=== PATIENT | male | born 1940 | race Caucasian/White ===

== ENCOUNTER 2017-07-26 14:38 | Emergency (ER) | payer MEDICARE ==
[2017-07-26 15:13] VITALS: BP 126/67
--- NOTE | 2017-07-26 15:31 | UC ---
Respiratory Complaint HPI - HPI Summary HPI Summary: Pt c/o cough, sob, and intermittent chest pain X 4 weeks. Pt has hx of afib and copd. Does not know baseline o2 saturation level. thinks it may be 97%. - History of Current Complaint Chief Complaint: UCRespiratory Stated Complaint: COUGH UPPER RESPIRATORY Time Seen by Provider: 07/26/17 14:44 Hx Obtained From: Patient Onset/Duration: Gradual Onset, Lasting Weeks, Still Present Timing: Constant Severity Initially: Mild Severity Currently: Moderate Character: Cough: Productive, Sputum Description: - yellow Aggravating Factors: Exertion, Deep Breaths, Recumbent Position Alleviating Factors: Nothing Associated Signs And Symptoms: Positive: Wheezing, Nasal Congestion - Risk Factors Pulmonary Embolism Risk Factors: Negative Cardiac Risk Factors: Hypertension Pseudomonas Risk Factors: Chronic Lung Disease Tuberculosis Risk Factors: Negative - Allergies/Home Medications Allergies/Adverse Reactions: Allergies Allergy/AdvReac Type Severity Reaction Status Date / Time Bee Venom Allergy Anaphylatic Verified 07/26/17 15:03 Shock Grapefruit Extract Allergy Shortness Verified 07/26/17 15:03 of Breath Home Medications: Home Medications Albuterol 2.5MG/3ML (0.083%)* [Ventolin 2.5 MG/3 ML NEB.LILY*] 1 inh TID PRN [History Confirmed 07/26/17] Albuterol HFA INHALER* [Ventolin HFA Inhaler*] 2 puff Q4HR PRN 07/26/17 [ History Confirmed 07/26/17] Amiodarone TAB* [Cordarone Tab*] 100 mg DAILY 07/26/17 [History Confirmed ] Fluticasone/Vilanterol MDI(NF) [Breo Ellipta MDI 100/25(NF)] 2 puff DAILY [History Confirmed 07/26/17] Tiotropium CAP.INH* [Spiriva CAP.INH*] 1 cap DAILY 07/26/17 [History Confirmed 07/26/17] PMH/Surg Hx/FS Hx/Imm Hx Previously Healthy: No Cardiovascular History: Cardiac Disease Respiratory History: COPD - Surgical History Surgical History: Yes Surgery Procedure, Year, and Place: Back surgery x2 - Family History Known Family History: Positive: Cardiac Disease - Social History Occupation: Retired Lives: With Family Alcohol Use: None Substance Use Type: None Smoking Status (MU): Former Smoker Have You Smoked in the Last Year: No - Immunization History Most Recent Influenza Vaccination: 2017 Review of Systems Constitutional: Negative Skin: Negative Eyes: Negative ENT: Other - nasal congestion Respiratory: Shortness Of Breath, Cough Cardiovascular: Chest Pain - intermittent Gastrointestinal: Negative Genitourinary: Negative Motor: Negative Neurovascular: Negative Musculoskeletal: Negative Neurological: Negative Psychological: Negative Is Patient Immunocompromised?: No All Other Systems Reviewed And Are Negative: Yes Physical Exam Triage Information Reviewed: Yes Appearance: Ill-Appearing Vital Signs: Initial Vital Signs Temp 97.1 F 07/26/17 15:06 Pulse 75 07/26/17 15:06 Resp 22 07/26/17 15:06 BP 126/67 07/26/17 15:06 Pulse Ox 95 07/26/17 15:06 Vital Signs Reviewed: Yes Eye Exam: Normal ENT Exam: Other ENT: Positive: Nasal congestion Dental Exam: Normal Neck exam: Normal Respiratory: Positive: Decreased breath sounds - bases, bilateral Cardiovascular: Positive: Other: - IRR, EKG confirmed Afib. I called his Cardioliogist, Dr. Phan and spoke with CHRISTOS Pedro, and she confirmed that pt has "transient Afib" Musculoskeletal Exam: Normal Neurological Exam: Normal Psychological Exam: Normal Skin Exam: Normal UC Diagnostic Evaluation - Laboratory O2 Sat by Pulse Oximetry: 95 Respiratory Course/Dx - Differential Dx/Diagnosis Differential Diagnosis/HQI/PQRI: Bronchitis, Pulmonary Embolism, Other - pneumonia Provider Diagnoses: Afib. bronchitis Discharge - Discharge Plan Condition: Stable Disposition: HOME Prescriptions: Benzonatate CAP* [Tessalon 100 MG CAP*] 100 mg PO Q8H PRN #30 cap PRN Reason: Cough predniSONE TAB* [Deltasone TAB*] 40 mg PO DAILY #6 tab Sulfamethox/Trimethoprim DS* [Bactrim DS 800/160 TAB*] 1 tab PO Q12H #20 tab Patient Education Materials: A-fib (Atrial Fibrillation) (ED), Acute Bronchitis (ED) Referrals: Emilie HARO,Antwan White [Medical Doctor] - If Needed Tomás Ruiz MD [Primary Care Provider] - If Needed
[2017-07-26] MEDS ORDERED: Levalbuterol 1.25MG/0.5ML NEB INH ONE (15:42)
[2017-07-26] MEDS ORDERED: predniSONE TAB* 50 MG PO ONE (15:44)
[2017-07-26] MEDS ORDERED: predniSONE TAB* 20 MG PO ONE (15:47)
[2017-07-26] MEDS ORDERED: Levalbuterol 0.63MG/3ML NEB* UNIT OF USE INH ONE (15:53)
--- NOTE | 2017-07-26 16:04 | RAD ---
INDICATION: Cough COMPARISON: December 06, 2015 TECHNIQUE: PA and lateral dual-energy views were obtained. FINDINGS: Bones/Soft Tissues: There are no acute bony findings. Cardiomediastinal: The cardiomediastinal silhouette is normal. Lungs: There are no infiltrates. There is hyperinflation Pleura: There are no pleural effusions. Other: None IMPRESSION: HYPERINFLATION. NO ACTIVE DISEASE
== END 2017-07-26 16:26 | disposition home or self-care (01) ==
LOC: UCCORT 14:38
DX: I48.91 Unspecified atrial fibrillation (principal); J44.9 Chronic obstructive pulmonary disease, unspecified; J40 Bronchitis, not specified as acute or chronic; I10 Essential (primary) hypertension; Z91.030 Bee allergy status; Z87.891 Personal history of nicotine dependence
CPT/HCPCS: 71020; 93005; 99212; A9270-GY; G0463; J7512; J7614

== ENCOUNTER 2017-10-30 09:19 | Emergency (ER) | payer MEDICARE ==
--- OUTSIDE RECORDS SUMMARY | 2017-10-30 09:31 | XMS REPORT ---
:1940 External Reference #:[id number] [facility] Address [address], [address] [place] [address] Phone [phone] Care Team Providers Name Role Phone Tomás Ruiz MD Care Team Information Vibrating Screen Operator Unavailable Tomás Ruiz MD Primary Care Physician Unavailable Payers Type Date Identification Numbers Payment Provider Subscriber Commercial Policy Number: [id number] [employer] Tomás Smalls PayID: [id number] [address] [address] [place] [address] Problems Date Description Provider Status Onset: 12/18/2010 Pure hypercholesterolemia Antwan Phan M.D., Active [facility] Onset: 12/18/2010 Benign essential hypertension Antwan Phan M.D., Active [facility] Onset: 12/18/2010 Atrial fibrillation Antwan Phan M.D., Active [facility] Onset: 12/13/2014 Dyspnea Antwan Phan M.D., Active [facility]ACC Onset: 12/13/2014 Cough Antwan Phan M.D., Active [facility]ACC Onset: 12/13/2014 Hyperlipidemia Antwan Phan M.D., Active [facility] Onset: 06/20/2015 Essential hypertension Aisha Munoz, CAROLINE, Active CABLE REPAIRER Onset: 10/03/2015 Chronic obstructive lung disease Antwan Phan M.D., Active [facility]ACC Onset: 10/03/2015 Mitral valve disorder Antwan Phan M.D., Active [facility] Onset: 09/09/2017 Persistent atrial fibrillation Antwan Phan M.D., Active [facility]AC Onset: 08/06/2017 Bleeding esophageal varices Antwan Phan M.D., Active [facility] Onset: 04/02/2016 Paroxysmal atrial fibrillation Aisha Munoz, MSN, Active CABLE REPAIRER Family History Date Family Member(s) Problem(s) Comments : (age 81 Years) Father due to [place] Social History Type Date Description Comments Lives With Significant Other Diet Patient follows no dietary restrictions Occupation Retired ADL's/IADL's Independent with all ADL's ADL's/IADL's Independent with all IADL's Cigarette Use Quit 20 yrs ago ETOH Use Denies alcohol use Smoking Patient is a former smoker Daily Caffeine Current Caffeine User Allergies, Adverse Reactions, Alerts Date Description Reaction Status Severity Comments 12/18/2010 Grapefruit active 05/16/2015 Bumble Bee active 12/18/2010 Bee Sting active 05/16/2015 Albuterol active Medications Medication Date Status Form Strength Qnty SIG Indications Ordering Provider Suresh WALDROP 09/10/ Active Caps ER 180mg 90cap 1 po qd I48.1 Antwan White 2017 24HR s Irlanda Phan, [facility] Digoxin 08/06/ Active Tablets 125mcg 90tab 1 by mouth Antwan White 2017 s every day Irlanda Phan, [facility] Spiriva 11/01/ Active Aerosol 2.5mcg/Ac 4unit Inhale 2 J43.2 Frank Respimat 2016 t s Puffs By MD Junior Mouth Once Daily Vitamin D / Active Capsules 1000Unit 60cap 1 po qd Unknown 0000 s Epipen 2-Malcolm / Active Device 0.3mg/0.3 as needed Unknown 0000 ML Ventolin HFA / Active Aerosol 108(90Bas 8gm take 2 puff Frank 0000 e) every 4 MD Junior mcg/Act hours as needed for shortness of breath. Albuterol / Active Nebulizer 1.25mg/3M 225ml use every 4 Frank Sulfate 0000 L hours as MD Junior needed for shortness of breath. Iron / Active Tablets 325(65Fe) 1 by mouth Unknown 0000 mg every other day Breo Ellipta / Active Aerosol 100-25mcg 60uni Inhale One Frank /Inh ts puff By MD Junior Mouth Every Day Pumpkin Seed / Active Capsules 1 po qd Unknown Oil 0000 Augmentin / Active Tablets 875-125mg 1 by mouth Unknown 0000 twice a day Cardizem LA 09/09/ Hx Tablets ER 180mg 90tab 1 by mouth I48.1 Antwan M. 2017 - 24HR s every night Emilie, 09/10/ Irlanda, [facility] 2017 Furosemide 04/02/ Hx Tablets 40mg 1/2 by mouth I10 Aisha 2015 as needed Tiffanie Munoz, MSN, CABLE REPAIRER Amiodarone HCL 10/22/ Hx Tablets 200mg 90tab take one Aisha 2014 s tablet by Tiffanie mouth every Munoz, day MSN, CABLE REPAIRER Diltiazem HCL 05/24/ Hx Caps ER 120mg 90cap Take One Antwan M. ER Coated 2013 - 24HR s Capsule By Emilie, Beads 12/13/ Mouth Once M.D., [facility] 2014 Daily Furosemide 08/05/ Hx Tablets 40mg 90tab take 1/2 I10 Aisha 2012 - s tablet qod Tiffanie 04/02/ Tammy, 2015 MSN, CABLE REPAIRER Diltiazem CD 03/19/ Hx Caps ER 120mg 90cap Take One Antwan M. 2011 - 24HR s Capsule By Emilie, 12/13/ Mouth Every M.D., [facility] 2014 Day Pradaxa 02/12/ Hx Capsules 150mg 60cap take one 427.31 Aisha 2010 s capsule by Tiffanie mouth twice Munoz, daily MSN, CABLE REPAIRER Allopurinol / Hx Tablets 300mg 1 tab m,w,f Unknown 0000 Klor-Con 10 / Hx Tablets ER 10Meq 90tab 1 po qd Unknown 0000 s Warfarin / Hx Tablets 5mg 45tab as directed 427.31 Unknown Sodium 0000 - s 2010 Cardizem CD / Hx Caps ER 120mg 90cap 1 po qd Antwan M. 0000 24HR s Irlanda Phan, [facility] Aspir-81 / Hx Tablets DR 81mg 60tab 2x weekly Unknown 0000 s Lisinopril / Hx Tablets 5mg 90tab 1/2 po qd Antwan M. 0000 - s Emilie, 05/05/ Irlanda, [facility] 2011 Lasix / Hx Tablets 40mg 90tab 1 po qd Antwan M. 0000 s Irlanda Phan, [facility] Pacerone / Hx Tablets 200mg 90tab Take One Aisha 0000 - s Tablet By Tiffanie 10/22/ Mouth Every Munoz, 2014 MSN, CABLE REPAIRER Symbicort / Hx Aerosol 160-4.5mc 6gm 2 puff bid Unknown 0000 g/Act Simvastatin / Hx Tablets 20mg 30tab Take 1/2 Antwan M. 0000 - s Tablet By Emilie, 03/14/ Mouth Every M.D., [facility] 2014 Albuterol Hx Nebulizer (5mg/ML) as needed Unknown Sulfate 0000 0.5% Proair HFA Hx Aerosol 108(90Bas 1-2 Unknown 0000 e) inhalations mcg/Act every 4 hours as needed Pantoprazole / Hx Tablets DR 40mg 1 po qd Unknown Sodium 0000 Lasix / Hx Tablets 20mg 1 by mouth Unknown 0000 every day Allopurinol / Hx Tablets 300mg 1 by mouth Unknown 0000 every day Vitamin C / Hx Tablets 1000mg 1 by mouth Unknown 0000 every day Amiodarone HCL / Hx Tablets 100mg 90tab Take One I48.1 Antwan M. 0000 - s Tablet By Emilie, 09/09/ Mouth Every M.D., [facility] 2017 Vital Signs Date Vital Result Comment 10/10/2017 BP Systolic Sitting Left Arm 132 mmHg BP Diastolic Sitting Left Arm 75 mmHg Heart Rate 78 /min Respiratory Rate 24 /min Height 66 inches 5'6" Weight 215.00 lb BMI (Body Mass Index) 34.7 kg/m2 BSA (Body Surface Area) 2.06 m2 [place] body weight in kilograms 64 O2 % BldC Oximetry 89 % 08/08/2017 BP Systolic Sitting Left Arm 118 mmHg BP Diastolic Sitting Left Arm 78 mmHg Heart Rate 78 /min Respiratory Rate 20 /min Height 66 inches 5'6" Weight 217.00 lb BMI (Body Mass Index) 35.0 kg/m2 BSA (Body Surface Area) 2.07 m2 [place] body weight in kilograms 64 O2 % BldC Oximetry 92 % room air 08/06/2017 BP Systolic Sitting Left Arm 122 mmHg BP Diastolic Sitting Left Arm 74 mmHg Heart Rate 92 /min Respiratory Rate 16 /min Weight 218.00 lb 06/24/2017 BP Systolic Sitting Left Arm 132 mmHg BP Diastolic Sitting Left Arm 68 mmHg Heart Rate 73 /min Respiratory Rate 18 /min Height 66 inches 5'6" Weight 216.00 lb BMI (Body Mass Index) 34.9 kg/m2 BSA (Body Surface Area) 2.07 m2 [place] body weight in kilograms 64 O2 % BldC Oximetry 93 % 12/17/2016 BP Systolic Sitting Right Arm 140 mmHg BP Diastolic Sitting Right Arm 66 mmHg Heart Rate 84 /min Respiratory Rate 16 /min Height 66 inches 5'6" Weight 219.00 lb BMI (Body Mass Index) 35.3 kg/m2 BSA (Body Surface Area) 2.08 m2 [place] body weight in kilograms 64 O2 % BldC Oximetry 92 % Room air 10/29/2016 BP Systolic Sitting Left Arm 114 mmHg BP Diastolic Sitting Left Arm 68 mmHg Heart Rate 72 /min Respiratory Rate 18 /min Height 66 inches 5'6" Weight 216.00 lb BMI (Body Mass Index) 34.9 kg/m2 BSA (Body Surface Area) 2.07 m2 06/19/2016 BP Systolic Sitting Left Arm 118 mmHg BP Diastolic Sitting Left Arm 67 mmHg Heart Rate 65 /min Respiratory Rate 16 /min Height 66 inches 5'6" Weight 208.00 lb BMI (Body Mass Index) 33.6 kg/m2 BSA (Body Surface Area) 2.03 m2 O2 % BldC Oximetry 91 % Room Air 04/02/2016 BP Systolic Sitting Left Arm 98 mmHg BP Diastolic Sitting Left Arm 79 mmHg Heart Rate 85 /min Respiratory Rate 16 /min Height 66 inches 5'6" Weight 210.00 lb BMI (Body Mass Index) 33.9 kg/m2 BSA (Body Surface Area) 2.04 m2 11/02/2015 BP Systolic Sitting Left Arm 132 mmHg BP Diastolic Sitting Left Arm 76 mmHg Heart Rate 84 /min Height 66 inches 5'6" Weight 210.00 lb BMI (Body Mass Index) 33.9 kg/m2 BSA (Body Surface Area) 2.04 m2 O2 % BldC Oximetry 93 % 10/03/2015 BP Systolic Sitting Left Arm 120 mmHg BP Diastolic Sitting Left Arm 66 mmHg Heart Rate 65 /min Respiratory Rate 16 /min Height 66 inches 5'6" Weight 208.00 lb BMI (Body Mass Index) 33.6 kg/m2 BSA (Body Surface Area) 2.03 m2 07/04/2015 BP Systolic Sitting Left Arm 98 mmHg BP Diastolic Sitting Left Arm 64 mmHg Heart Rate 61 /min Respiratory Rate 24 /min Height 66 inches 5'6" Weight 213.00 lb BMI (Body Mass Index) 34.4 kg/m2 BSA (Body Surface Area) 2.05 m2 O2 % BldC Oximetry 95 % 06/20/2015 BP Systolic Sitting Right Arm 102 mmHg BP Diastolic Sitting Right Arm 60 mmHg Heart Rate 60 /min reg Respiratory Rate 16 /min Height 66.5 inches 5'6.50" Weight 210.00 lb BMI (Body Mass Index) 33.4 kg/m2 BSA (Body Surface Area) 2.05 m2 03/14/2015 BP Systolic Sitting Left Arm 128 mmHg BP Diastolic Sitting Left Arm 70 mmHg Heart Rate 58 /min Respiratory Rate 16 /min Height 66.5 inches 5'6.50" Weight 209.00 lb BMI (Body Mass Index) 33.2 kg/m2 BSA (Body Surface Area) 2.05 m2 12/13/2014 BP Systolic Sitting Right Arm 110 mmHg BP Diastolic Sitting Right Arm 68 mmHg Heart Rate 60 /min Respiratory Rate 20 /min Height 66.5 inches 5'6.50" Weight 210.00 lb BMI (Body Mass Index) 33.4 kg/m2 BSA (Body Surface Area) 2.05 m2 12/08/2013 BP Systolic Sitting Right Arm 150 mmHg BP Diastolic Sitting Right Arm 74 mmHg Heart Rate 60 /min Respiratory Rate 16 /min Height 66.5 inches 5'6.50" Weight 220.00 lb BMI (Body Mass Index) 35.0 kg/m2 BSA (Body Surface Area) 2.09 m2 11/12/2012 BP Systolic Sitting Right Arm 130 mmHg BP Diastolic Sitting Right Arm 78 mmHg Heart Rate 56 /min Respiratory Rate 16 /min Height 66.5 inches 5'6.50" Weight 221.00 lb BMI (Body Mass Index) 35.1 kg/m2 11/12/2011 BP Systolic Sitting Right Arm 120 mmHg BP Diastolic Sitting Right Arm 64 mmHg Heart Rate 60 /min Respiratory Rate 20 /min Height 66.5 inches 5'6.50" Weight 225.00 lb BMI (Body Mass Index) 35.8 kg/m2 05/15/2011 BP Systolic Sitting Left Arm 120 mmHg BP Diastolic Sitting Left Arm 70 mmHg Heart Rate 62 /min Regular Respiratory Rate 16 /min Height 66.5 inches 5'6.50" Weight 221.00 lb BMI (Body Mass Index) 35.1 kg/m2 02/12/2011 BP Systolic Sitting Right Arm 122 mmHg BP Diastolic Sitting Right Arm 68 mmHg Heart Rate 66 /min Respiratory Rate 18 /min Height 66.5 inches 5'6.50" Weight 225.00 lb BMI (Body Mass Index) 35.8 kg/m2 12/18/2010 BP Systolic Sitting Left Arm 100 mmHg BP Diastolic Sitting Left Arm 62 mmHg Heart Rate 92 /min Regular Respiratory Rate 16 /min Height 66.5 inches 5'6.50" Weight 224.00 lb BMI (Body Mass Index) 35.6 kg/m2 Results Test Date Test Result H/L Range Note CBC 10/13/2017 White Blood Count 22.6 K/uL High 3.4-10.5 1 Red Blood Count 4.57 M/uL 4.20-5.80 1 Hemoglobin 14.6 gm/dL 12.8-17.0 1 Hematocrit 45.0 % 38.0-48.0 1 Mean Cell Volume 98.5 fl High 80.0-96.0 1 Mean Corpuscular HGB 31.9 pg 27.0-33.0 1 Mean Corpuscular HGB Conc 32.4 g/dL 31.7-36.0 1 Platelet Count 221 K/uL 155-360 1 Red Cell Distri Width %CV 13.4 % 11.6-15.8 1 Mean Platelet Volume 9.0 fL 6.6-10.6 1 Basic Metabolic Panel 10/13/2017 Glucose 172 mg/dL High 74-106 1 BUN 44 mg/dL High 7-18 1 Creatinine 1.8 mg/dL High 0.6-1.3 1 Glom Filtration Rate, Estimate 39 mL/min >60 1 If 47 mL/min >60 1, 2 BUN/Creat 24.4 ratio 1 Sodium 136 mmol/L 136-145 1 Potassium 4.6 mmol/L 3.5-5.1 1 Chloride 98 mmol/L 98-107 1 Carbon Dioxide 32 mmol/L 21-32 1 Anion Gap 6 mEq/L Low 8-16 1 Calcium 8.7 mg/dL 8.5-10.1 1 CBC 10/12/2017 White Blood Count 20.7 K/uL High 3.4-10.5 1 Red Blood Count 4.34 M/uL 4.20-5.80 1 Hemoglobin 14.0 gm/dL 12.8-17.0 1 Hematocrit 43.4 % 38.0-48.0 1 Mean Cell Volume 100.0 fl High 80.0-96.0 1 Mean Corpuscular HGB 32.3 pg 27.0-33.0 1 Mean Corpuscular HGB Conc 32.3 g/dL 31.7-36.0 1 Platelet Count 188 K/uL 155-360 1 Red Cell Distri Width %CV 13.3 % 11.6-15.8 1 Mean Platelet Volume 9.3 fL 6.6-10.6 1 Basic Metabolic Panel 10/12/2017 Glucose 205 mg/dL High 74-106 1 BUN 42 mg/dL High 7-18 1 Creatinine 1.9 mg/dL High 0.6-1.3 1 Glom Filtration Rate, Estimate 37 mL/min >60 1 If 44 mL/min >60 1, 3 BUN/Creat 22.1 ratio 1 Sodium 134 mmol/L Low 136-145 1 Potassium 4.6 mmol/L 3.5-5.1 1 Chloride 98 mmol/L 98-107 1 Carbon Dioxide 31 mmol/L 21-32 1 Anion Gap 5 mEq/L Low 8-16 1 Calcium 8.7 mg/dL 8.5-10.1 1 Order 06/21/2016 PFT With Bronchodilator <pending> Laboratory test 05/17/2015 Hematocrit 28.0 Low 38.0-48.0 finding Hemoglobin 8.3 Low 12.8-17.0 Mean Corpuscular Hemoglobin 28.2 27.0-33.0 Mean Corpuscular Hemoglobin Concent 29.6 Low 31.7-36.0 Mean Corpuscular Volume 95.2 80.0-96.0 Mean Platelet Volume 9.3 6.6-10.6 Platelet Count 204 150-400 RDW Coefficient of Variation 15.2 11.6-15.8 Red Blood Count 2.94 Low 4.20-5.80 White Blood Count 8.1 3.4-10.5 Laboratory test 05/16/2015 Stool Occult Blood Negative Negative finding Laboratory test 05/16/2015 Miscellaneous Test Test(s) added finding Comment Laboratory test 05/16/2015 Urine Bilirubin Negative Negative finding Urine Blood Trace Negative Urine Clarity Clear Clear Urine Color Yellow Yellow Urine Glucose (Ua) Negative Negative Urine Ketones Negative Negative Urine Leukocyte Esterase Negative Negative Urine Nitrite Negative Negative Urine Protein Negative Negative Urine Specific Barnett 1.025 1.010-1.030 Urine Urobilinogen 0.2 0.2-1.0 Urine pH 5.5 Low 6.5-7.5 Laboratory test finding 05/16/2015 Alanine Aminotransferase (Alt/SGPT) 27 12-78 Albumin 3.4 3.4-5.0 Albumin/Globulin Ratio 1.0 Alkaline Phosphatase 61 45-117 Anion Gap 3 Low 8-16 Aspartate Amino Transf (Ast/Sgot) 21 15-37 BUN/Creatinine Ratio 11.7 Basophils # (Auto) 0.03 Low 0.1-0.2 Basophils (%) (Auto) 0.3 0.1-1.0 Blood Urea Nitrogen 20 High 7-18 Calcium Level 8.5 8.5-10.1 Carbon Dioxide Level 29 21-32 Chloride Level 108 High 98-107 Creatinine 1.7 High 0.6-1.3 Eosinophils # (Auto) 0.23 0.0-0.5 Eosinophils (%) (Auto) 2.5 0.0-5.0 Estimated GFR () 51 >60 Estimated GFR (Non- 42 >60 Globulin 3.4 1.9-4.3 Glucose Screen 116 High 74-106 Iron Level 14 Low 65-175 Lymphocytes # (Auto) 1.01 Low 1.8-7.0 Lymphocytes (%) (Auto) 11.2 Low 17.0-56.0 Monocytes # (Auto) 1.13 High 0.0-0.8 Monocytes (%) (Auto) 12.5 High 0.0-10.0 Neutrophils # (Auto) 6.62 1.8-7.0 Neutrophils (%) (Auto) 73.5 High 33.0-73.0 Potassium Level 4.9 3.5-5.1 Pro-B-Type Natriuretic Peptide 325.0 <450 Red Cell Distribution Width 50.2 36-51 Reticulocyte Count (auto) 2.1 0.8-2.1 Sodium Level 140 136-145 Total Bilirubin 0.4 0.2-1.0 Total Iron Binding Capacity 526 High 250-450 Total Protein 6.8 6.4-8.2 Transferrin % Saturation 3 Low 12-57 Laboratory test finding 02/18/2015 Albumin 3.3 Low 3.4-5.0 Anion Gap 5 Low 8-16 BUN/Creatinine Ratio 9.4 Basophils # (Auto) 0.03 Low 0.1-0.2 Basophils (%) (Auto) 0.4 0.1-1.0 Blood Urea Nitrogen 18 7-18 Calcium Level 9.2 8.5-10.1 Carbon Dioxide Level 31 21-32 Chloride Level 105 98-107 Creatinine 1.9 High 0.6-1.3 Eosinophils # (Auto) 0.52 High 0.0-0.5 Eosinophils (%) (Auto) 6.3 High 0.0-5.0 Estimated GFR () 45 >60 Estimated GFR (Non- 37 >60 Glucose Screen 107 High 74-106 Hematocrit 38.5 38.0-48.0 Hemoglobin 12.1 Low 12.8-17.0 Lymphocytes # (Auto) 1.19 Low 1.8-7.0 Lymphocytes (%) (Auto) 14.5 Low 17.0-56.0 Mean Corpuscular Hemoglobin 32.5 27.0-33.0 Mean Corpuscular Hemoglobin Concent 31.4 Low 31.7-36.0 Mean Corpuscular Volume 103.5 High 80.0-96.0 Mean Platelet Volume 8.8 6.6-10.6 Monocytes # (Auto) 0.90 High 0.0-0.8 Monocytes (%) (Auto) 11.0 High 0.0-10.0 Neutrophils # (Auto) 5.57 1.8-7.0 Neutrophils (%) (Auto) 67.8 33.0-73.0 Parathyroid Hormone (Intact) 49 15-65 Phosphorus Level 3.3 2.5-4.0 Platelet Count 270 150-400 Potassium Level 4.1 3.5-5.1 RDW Coefficient of Variation 14.1 11.6-15.8 Red Blood Count 3.72 Low 4.20-5.80 Red Cell Distribution Width 51.6 High 36-51 Sodium Level 141 136-145 Uric Acid 5.3 3.5-7.2 White Blood Count 8.2 3.4-10.5 Protime 01/30/2011 Protime 26.4 seconds High 12.2-15.2 Inr 2.3 High 0.9-1.1 4 CBC/Manual Differential 01/30/2011 White Blood Count 7.1 K/uL 3.4-10.5 Red Blood Count 4.47 M/uL 4.20-5.80 Hemoglobin 14.2 gm/dL 12.8-17.0 Hematocrit 46.0 % 38.0-48.0 Mean Cell Volume 102.9 fl High 80.0-96.0 Mean Corpuscular HGB 31.8 pg 27.0-33.0 Mean Corpuscular HGB Conc 30.9 g/dL Low 31.7-36.0 Platelet Count 233 K/uL 150-400 Red Cell Distri Width %CV 14.3 % 11.6-15.8 Mean Platelet Volume 9.5 fL 6.6-10.6 Total Cells Counted 100 #CELLS Neutrophils% 54 % 33-73 Lymph% 28 % 17-56 Platelet Estimate NORMAL Atypical Lymph% 3 % 0-7 Monocyte% 7 % 0-10 Eosinophil% 8 % High 0-5 Hypochromia 0-1+ Macrocytosis 1+ Differential Comment See Note 5 Laboratory test finding 01/30/2011 PTH,Intact 85 pg/mL High 15-65 6 Vitamin D,25-Hydroxy 23.3 ng/mL Low 32.0-100.0 7 Renal Function Panel 01/30/2011 Glucose 142 mg/dL High 76-115 BUN 28 mg/dL High 5-23 Creatinine 2.2 mg/dL High 0.5-1.4 Glom Filtration Rate, Estimate 31 mL/min >60 If 38 mL/min >60 8 BUN/Creat 12.7 Sodium 138 mEq/L 136-145 Potassium 4.4 mEq/L 3.5-5.1 Chloride 102 mEq/L 98-107 Carbon Dioxide 30 mEq/L 21-32 Anion Gap 10 mEq/L 8-16 Calcium 8.4 mg/dL Low 8.5-10.1 Phosphorous 2.7 mg/dL 2.4-4.7 Albumin 3.6 g/dL 3.5-5.0 Protime 01/16/2011 Protime 24.8 seconds High 12.2-15.2 Inr 2.2 High 0.9-1.1 9 Protime 01/04/2011 Protime 22.1 seconds High 12.2-15.2 Inr 1.9 High 0.9-1.1 10 Protime 12/27/2010 Protime 28.3 seconds High 12.2-15.2 Inr 2.6 High 0.9-1.1 11 Protime 12/18/2010 Protime 28.2 seconds High 12.2-15.2 Inr 2.5 High 0.9-1.1 12 1 ACUTE COPD, BRONCHITIS 2 Note: Persistent reduction for 3 months or more in an eGFR <60 mL/min/1.73 m2 defines CKD. Patients with eGFR values >/=60 mL/min/1.73 m2 may also have CKD if evidence of persistent proteinuria is present. The original MDRD equation for estimated GFR is not valid for patients less than 18 years of age. Additional information may be found at www.kdoqi.org. 3 Note: Persistent reduction for 3 months or more in an eGFR <60 mL/min/1.73 m2 defines CKD. Patients with eGFR values >/=60 mL/min/1.73 m2 may also have CKD if evidence of persistent proteinuria is present. The original MDRD equation for estimated GFR is not valid for patients less than 18 years of age. Additional information may be found at www.kdoqi.org. 4 THERAPEUTIC INR RANGE: 2.0 - 3.0 DVT, Pulmonary embolus, prophylaxis against venous thrombosis or systemic embolization in high risk patients. 2.5 - 3.5 Mechanical heart valves 5 1 REACTIVE LYMPHOCYTE SEEN 6 Performed at: - [facility] [id number] Die Welder: Usman Carpenter MD, Phone: [phone] 7 Recent studies consider the lower limit of 32.0 ng/mL to be a threshold for optimal health. Johnathan BRAXTON. J Nutr. 2004;135(2):317-22. Performed at: [facility] [address] [id number] Die Welder: Usman Carpenter MD, Phone: [phone] 8 Note: Persistent reduction for 3 months or more in an eGFR <60 mL/min/1.73 m2 defines CKD. Patients with eGFR values >/=60 mL/min/1.73 m2 may also have CKD if evidence of persistent proteinuria is present. The original MDRD equation for estimated GFR is not valid for patients less than 18 years of age. Additional information may be found at www.kdoqi.org. 9 THERAPEUTIC INR RANGE: 2.0 - 3.0 DVT, Pulmonary embolus, prophylaxis against venous thrombosis or systemic embolization in high risk patients. 2.5 - 3.5 Mechanical heart valves 10 THERAPEUTIC INR RANGE: 2.0 - 3.0 DVT, Pulmonary embolus, prophylaxis against venous thrombosis or systemic embolization in high risk patients. 2.5 - 3.5 Mechanical heart valves 11 THERAPEUTIC INR RANGE: 2.0 - 3.0 DVT, Pulmonary embolus, prophylaxis against venous thrombosis or systemic embolization in high risk patients. 2.5 - 3.5 Mechanical heart valves 12 THERAPEUTIC INR RANGE: 2.0 - 3.0 DVT, Pulmonary embolus, prophylaxis against venous thrombosis or systemic embolization in high risk patients. 2.5 - 3.5 Mechanical heart valves Procedures Date CPT Code Description Status 09/09/2017 76529 EKG-Tracing And Report Completed 06/21/2016 21935 Bronchospasm Provocation Evaluation Multi Spirometric Completed Determinati 06/21/2016 88435 Spirometry Completed 03/27/2016 30425 Echocardiogram Complete Completed 10/03/2015 24230 EKG-Tracing And Report Completed 07/11/2015 91463 Bronchospasm Provocation Evaluation Multi Spirometric Completed Determinati 07/11/2015 07465 Spirometry Completed 06/20/2015 34885 EKG-Tracing And Report Completed 05/16/2015 36693 Echocardiogram Complete Completed 12/13/2014 18227 EKG-Tracing And Report Completed 12/08/2013 66757 EKG-Tracing And Report Completed 11/12/2012 15473 EKG-Tracing And Report Completed 11/12/2011 99177 EKG-Tracing And Report Completed 02/12/2011 13260 EKG-Tracing And Report Completed 01/08/2011 23307 Echocardiogram Complete Completed 01/08/2011 30322 Stress Test Interpre And Report Only Completed 01/08/2011 22310 Stress Test Physician Super Only Completed 01/08/2011 71508 Myocardial Imaging Tomographic Multiple Study At Rest Completed Or Stress 12/18/2010 29959 EKG-Tracing And Report Completed Encounters Type Date Location Provider CPT E/M Dx Office Visit 09/09/2017 2:00p Cardiology Office Antwan Phan, 06236 I48.1 M.D., FACC J44.9 I85.01 Office Visit 08/08/2017 11:30a [place] [address] J20.9 J30.0 Office Visit 08/06/2017 1:00p Cardiology Office Antwan Phan, 20677 I48.0 M.D., FACC J44.9 I85.01 I34.0 Office Visit 06/24/2017 2:30p [place] [address] J44.9 R91.1 Office Visit 12/17/2016 2:45p [place] [address] J44.9 R91.1 Office Visit 10/29/2016 2:40p Cardiology Office Antwan Phan, 03984 I48.0 M.D., FACC I48.0 I34.0 I34.0 J44.9 Office Visit 06/19/2016 1:15p [place] [address] J44.9 F17.210 R91.1 E66.8 Office Visit 04/02/2016 2:20p Cardiology Office Aisha Munoz, 34796 I34.0 MSN, CABLE REPAIRER I48.0 J44.9 I10 Office Visit 11/02/2015 4:00p [place] [address] J43.2 F17.210 R91.1 Office Visit 10/03/2015 10:00a Cardiology Office Antwan Phan, 43850 I48.0 M.D., FACC J44.9 I34.0 Office Visit 07/04/2015 4:00p [place] [address] J43.2 F17.211 R91.1 D50.0 Office Visit 06/20/2015 10:20a Cardiology Office Aisha Munoz, 83403 I48.0 MSN, CABLE REPAIRER D64.9 I34.0 I10 J44.1 Office Visit 05/18/2015 9:29a Cardiology Office Antwan Phan, 89972 I48.0 M.D., FACC D64.9 Office Visit 05/16/2015 2:56p [facility] Ernst Chavez M.D. 48548 J44.1 [facility] D64.9 R06.02 I27.0 Office Visit 03/14/2015 11:40a Cardiology Office Antwan Phan, 44210 427.31 M.D., FACC 401.1 272.4 Office Visit 12/13/2014 11:20a Cardiology Office Antwan Phan, 02805 786.05 M.D., FACC 786.2 427.31 401.1 272.4 Office Visit 12/08/2013 11:40a Cardiology Office Antwan Phan, 86982 427.31 M.D., FACC 401.1 Office Visit 11/12/2012 1:00p Cardiology Office Aisha Munoz, 79625 427.31 MSN, CABLE REPAIRER 401.1 272.0 Office Visit 11/12/2011 2:00p Cardiology Office Antwan Phan, 38584 427.31 M.D., FACC 401.1 272.0 Office Visit 05/15/2011 1:00p Cardiology Office Aisha Munoz, 07520 427.31 MSN, CABLE REPAIRER 401.1 272.0 Office Visit 02/12/2011 2:50p Cardiology Office Antwan Phan, 66582 427.31 M.D., FACC 272.0 401.1 Office Visit 12/18/2010 2:20p Cardiology Office Antwan Phan, 91798 272.0 M.D., FACC 401.1 427.31 Plan of Care Future Appointment(s):03/14/2018 11:20 am - Antwan Phan M.D., FACC at Cardiology [id number]/25/2018 1:30 pm - Frank Pacheco MD at Wsmfjbjnkti84/08/2018 - Frank Pacheco MDJ44.1 Chronic obstructive pulmonary disease w (acute) exacerbationComments:Appears to be quite ill and has diffuse wheezing on examination. I am sending him up to the ED to beadmitted for COPD exacerbation. He will need IV fluids, antibiotics, and steroids.
[2017-10-30 09:54] VITALS: BP 101/51
--- NOTE | 2017-10-30 10:18 | UC ---
Lower Extremity/Ankle HPI - HPI Summary HPI Summary: Left great toe pain and inflammation for about a day. He says this is similar to gout attacks that he has had before about 3-4 times. No fever or chills. No calf pain. NO dm. - History of Current Complaint Chief Complaint: UCLowerExtremity Stated Complaint: (L) GREAT TOE COMPLAINT Time Seen by Provider: 10/30/17 09:48 Hx Obtained From: Patient Onset/Duration: Gradual Onset, Lasting Hours, Still Present Severity Initially: Moderate Severity Currently: Severe Pain Intensity: 10 Aggravating Factor(s): Standing, Ambulation, Other - touch. Alleviating Factor(s): Rest, Elevation Able to Bear Weight: No Related History: Other - gout - Allergies/Home Medications Allergies/Adverse Reactions: Allergies Allergy/AdvReac Type Severity Reaction Status Date / Time bee venom protein (honey bee) Allergy Severe Anaphylatic Verified 10/30/17 09:37 Shock grapefruit Allergy Unknown Shortness Verified 10/30/17 09:37 of Breath Home Medications: Home Medications Albuterol 2.5MG/3ML (0.083%)* [Ventolin 2.5 MG/3 ML NEB.LILY*] 2.5 mg INH Q4H PRN 10/30/17 [History Confirmed 10/30/17] Albuterol Sulfate [Proventil Hfa] 2 inh IN Q4H PRN 10/30/17 [History Confirmed 10/30/17] Cholecalciferol TAB* [Vitamin D TAB*] 1,000 unit PO DAILY 10/30/17 [History Confirmed 10/30/17] Digoxin TAB* [Lanoxin TAB*] 0.125 mg PO DAILY 10/30/17 [History Confirmed ] Diltiazem CD CAP* [Cardizem CD CAP*] 180 mg PO DAILY 10/30/17 [History Confirmed 10/30/17] Famotidine TAB* [Pepcid 20 MG TAB*] 20 mg PO DAILY 10/30/17 [History Confirmed 10/30/17] Ferrous Sulfate TAB* 325 mg PO Q48H 10/30/17 [History Confirmed 10/30/17] Fluticasone/Vilanterol [Breo Ellipta 200-25 Mcg INH] 1 each IH 10/30/17 [History ] Lactobacillus Acidophilus [Acidophilus Lactobacilli] 1 cap PO DAILY 10/30/17 [ History Confirmed 10/30/17] Neomycin/Polym/Bacit TOP OINT* [Neosporin TOP OINT TUBE*] 1 applic .SEE ORDER [History] Pumpkin See Oil 10/30/17 [History] Sodium Chloride [Ra Saline Nasal Fenton] 0.65 % NA DAILY 10/30/17 [History Confirmed 10/30/17] Spiriva Inhaler DEVICE* [Tiotropium Inhaler DEVICE*] 0 inh DAILY 10/30/17 [ History Confirmed 10/30/17] guaiFENesin ER TAB [Mucinex*] 600 mg PO BID 10/30/17 [History Confirmed 10/30/17 ] PMH/Surg Hx/FS Hx/Imm Hx Previously Healthy: No - Kidney disease, gout, copd. - Surgical History Surgical History: Yes Surgery Procedure, Year, and Place: Back surgery x2 - Family History Known Family History: Positive: Cardiac Disease - Social History Lives: With Family Alcohol Use: None Substance Use Type: None Smoking Status (MU): Former Smoker Have You Smoked in the Last Year: No When Did the Patient Quit Smoking/Using Tobacco: 1981 - Immunization History Most Recent Influenza Vaccination: 2017 Review of Systems Musculoskeletal: Arthralgia All Other Systems Reviewed And Are Negative: Yes Physical Exam Triage Information Reviewed: Yes Appearance: Well-Appearing - Pleasant and jovial. Obvious pain with palpation of the left 1st MTP joint. Vital Signs: Initial Vital Signs Temp 97.4 F 10/30/17 09:38 Pulse 76 10/30/17 09:38 Resp 24 10/30/17 09:38 BP 101/51 10/30/17 09:38 Pulse Ox 81 10/30/17 09:38 Vital Signs Reviewed: Yes Eye Exam: Normal Eyes: Positive: Conjunctiva Clear. Negative: Conjunctiva Inflamed ENT: Positive: Normal ENT inspection, Pharynx normal Neck: Positive: Supple, Nontender, No Lymphadenopathy Respiratory: Negative: Respiratory distress, Accessory muscle use Cardiovascular: Positive: RRR, No Murmur Abdomen Description: Positive: No Organomegaly. Negative: Distended, Guarding Musculoskeletal Exam: Other - Left mtp joint tenderness and swelling. No calf tenderness or swelling. Psychological: Positive: Normal Response To Family, Age Appropriate Behavior Skin: Positive: Other - pink skin over the left 1st mtp joint.. Negative: rashes Lower Extremity Course/Dx - Course Course Of Treatment: No signs of infection. This is c/w gout. THey will call retention manager to see if they can get short supply of colchicine and to place him on allopurinol low dose if that is ok. - Differential Dx/Diagnosis Provider Diagnoses: gout attack Discharge - Sign-Out/Discharge Documenting (check all that apply): Discharge - Discharge Plan Condition: Good Disposition: HOME Prescriptions: methylPREDNISolone [Medrol Dosepak 4 MG*] 4 mg PO .SEE TANYA INSTRUCTION #21 tab Patient Education Materials: Low Purine Diet (ED), Gout (ED) Referrals: Tomás Ruiz MD [Primary Care Provider] - Additional Instructions: Call your kidney doctor to see if one dose of colchicine is ok and allopurinol low dose in the future after this flare up is gone. - Billing Disposition and Condition Condition: GOOD Disposition: HOME
== END 2017-10-30 10:59 | disposition home or self-care (01) ==
LOC: UCCORT 09:19
DX: M10.9 Gout, unspecified (principal); Z87.891 Personal history of nicotine dependence
CPT/HCPCS: 99211; G0463